=== PATIENT | female | born 1940 | race Caucasian/White ===

== ENCOUNTER → 2022-07-12 | Outpatient (CLI) | payer MEDICARE ==
--- NOTE | 2022-07-12 15:44 | XR ---
EXAMINATION TYPE: XR chest 2V DATE OF EXAM: 07/12/2022 COMPARISON: NONE HISTORY: Malignant neoplasm head of pancreas. Weakness and shortness of breath. TECHNIQUE: Frontal and lateral views of the chest are obtained. FINDINGS: Suspect mild underlying emphysematous change. Left internal jugular Mediport catheter termi nates in SVC. There is no focal air space opacity, pleural effusion, or pneumothorax seen. The cardi ac silhouette size is within normal limits with atherosclerotic change aortic knob. The osseous str uctures are demineralized. IMPRESSION: Mild chronic emphysematous change without acute pulmonary process.
== END | disposition home or self-care (01) ==
LOC: RADXRMAIN 15:26
PROVIDERS: ATTEND Internal Medicine
DX: C25.0 Malignant neoplasm of head of pancreas (principal)
CPT/HCPCS: 71046

== ENCOUNTER → 2022-07-19 | Outpatient (CLI) | payer MEDICARE ==
[2022-07-19 12:28] LABS: African American GFR (CKD) >90 (>60 ml/min/1.73 sqM); Blood Urea Nitrogen 16 mg/dL (7-17); Non-African American GFR(CKD) 84 (>60 ml/min/1.73 sqM)
--- NOTE | 2022-07-19 13:21 | CT ---
EXAMINATION TYPE: CT chest w con DATE OF EXAM: 07/19/2022 COMPARISON: Radiograph 07/12/2022 HISTORY: 81-year-old female productive cough, hx of pancreatic ca TECHNIQUE: Contiguous axial scanning of the chest after the administration of 70cc mL of Isovue 300. Coronal/sagittal reconstructions performed. CT DLP: 452mGycm. Automatic exposure control utilized for a dose reduction. FINDINGS: Oil cyst measuring 1.2 cm lateral right breast. Heart normal size without pericardial effusion. Left anterior chest wall injection port with catheter tip at the lower SVC. Aorta normal caliber with scattered mild to moderate atherosclerotic arch and descending thoracic aor tic calcifications. Moderate focal atherosclerotic narrowing at the proximal right subclavian artery. No thoracic lymphadenopathy by CT size criteria. Mild diffuse bronchial wall thickening. There are a few scattered focal peribronchovascular and perip heral opacities. Some tree-in-bud opacity posterior left upper lobe. Some strandy atelectasis or scar ring in the lower lungs. No large focal area of consolidation or pleural effusion. Small to moderate-sized hiatal hernia. Visualized upper abdomen shows pneumobilia. A metallic stent i s present in the bile duct and there is diffuse dilatation of the main pancreatic duct noted likely s econdary to the patient's reported pancreatic cancer. 3 mm nonobstructive right renal calculus. Moderate atherosclerotic calcifications visualized upper abdominal aorta. Bones: Arthropathy in the lumbar spine. Moderate degenerative disc disease L2-L3. IMPRESSION: 1. A few scattered foci of peribronchovascular opacity especially in the upper and mid lungs. Finding s may be seen with developing COVID pneumonia or interstitial pneumonitis such as [employer]. Clinically cor relate. 2. Fyckf-[id number]-vwihdxdu size hiatal hernia. Pneumobilia and metallic biliary stent. Main pancreatic duct al dilatation. Findings likely on the basis of patient's known pancreatic cancer. Nonobstructive 3 mm right renal stone.
== END | disposition home or self-care (01) ==
LOC: RADCTMAIN 11:40
PROVIDERS: ATTEND Internal Medicine
DX: Z03.89 Encounter for observation for other suspected diseases and conditions ruled out (principal); C25.0 Malignant neoplasm of head of pancreas
CPT/HCPCS: 82565; 84520; 71260; 36415; Q9967

== ENCOUNTER 2022-08-01 14:49 | Emergency (ER) | payer MEDICARE ==
[2022-08-01 15:02] VITALS: BP 147/70; PULSE 105; RESP 20; TEMP 96.8
--- NOTE | 2022-08-01 15:57 | XR ---
EXAMINATION TYPE: XR chest 2V DATE OF EXAM: 08/01/2022 COMPARISON: Chest x-ray 07/12/2022 HISTORY: Dysrhythmia, tachycardia TECHNIQUE: Frontal and lateral views of the chest are obtained. FINDINGS: There is a Port-A-Cath in left pectoral region coursing via jugular approach, distal tip o f the catheter is at the cavoatrial junction. No evident pneumothorax or pleural effusion. Bilateral pulmonary nodules are again seen. Cardiac mediastinal silhouette is stable. Aorta is dense. Bones are unchanged. Prominent lung volumes are consistent with underlying COPD. IMPRESSION: Metastatic disease.
[2022-08-01 18:00] LABS: Basophils # (A) 0.1 k/uL (0-0.2); Basophils % (A) 1 %; Eosinophils % (A) 0 %; HCT 33.6 % (34.0-46.0); Lymphocytes # (A) 2.6 k/uL (1.0-4.8); Lymphocytes % (A) 43 %; MCH 29.9 pg (25.0-35.0); MCHC 32.8 g/dL (31.0-37.0); MCV 91.3 fL (80.0-100.0); Mean Platelet Volume 8.3; Monocytes # (A) 0.1 k/uL (0-1.0); Monocytes % (A) 1 %; Neutrophils # (A) 3.3 k/uL (1.3-7.7); Neutrophils % (A) 53 %; Platelet Count 287 k/uL (150-450); RBC 3.68 m/uL (3.80-5.40); RDW 13.3 % (11.5-15.5); WBC 6.1 k/uL (3.8-10.6)
[2022-08-01 18:10] LABS: ALT 75 U/L (4-34); AST 63 U/L (14-36); African American GFR (CKD) >90 (>60 ml/min/1.73 sqM); Albumin 4.1 g/dL (3.5-5.0); Alkaline Phosphatase 101 U/L (38-126); Anion Gap 10 mmol/L; Blood Urea Nitrogen 18 mg/dL (7-17); Calcium 9.4 mg/dL (8.4-10.2); Carbon Dioxide 23 mmol/L (22-30); Chloride 103 mmol/L (98-107); Glucose 98 mg/dL (74-99); Magnesium 1.8 mg/dL (1.6-2.3); Non-African American GFR(CKD) >90 (>60 ml/min/1.73 sqM); Potassium 4.4 mmol/L (3.5-5.1); Sodium 136 mmol/L (137-145); Total Bilirubin 0.6 mg/dL (0.2-1.3); Total Protein 6.8 g/dL (6.3-8.2)
[2022-08-01 18:15] LABS: Partial Thromboplastin Time 21.5 sec (22.0-30.0); Prothrombin Time 10.6 sec (9.0-12.0)
[2022-08-01] MEDS ORDERED: SODIUM CHLORIDE 0.9% 1,000 ML IV ONE (19:29)
--- NOTE | 2022-08-01 19:45 | ED ---
General Adult HPI - General Chief complaint: Arrhythmia/Palpitations Stated complaint: Heart Racing Time Seen by Provider: 08/01/22 19:10 Source: patient Mode of arrival: ambulatory Limitations: no limitations - History of Present Illness Initial comments: Patient is a 81-year-old female with history of pancreatic cancer currently receiving chemo presenting with chief complaint of elevated heart rate. Patient was seen on her oncologist office today. Patient's fitbit was indicating an elevated heart rate throughout the afternoon. The practitioner at the office recommended she reports the ER for further evaluation, and was concerned for dehydration. Patient denies any chest pain, shortness of breath, fever, chills, nausea, vomiting, palpitations, weakness, numbness, tingling, abdominal pain, hematochezia, melena, dysuria, hematuria, lower extremity swelling, recent surgery or travel. - Related Data Allergies Allergy/AdvReac Type Severity Reaction Status Date / Time No Known Allergies Allergy Verified 08/01/22 15:02 Review of Systems ROS Statement: Those systems with pertinent positive or pertinent negative responses have been documented in the HPI. ROS Other: All systems not noted in ROS Statement are negative. Past Medical History Past Medical History: Asthma, Hypertension Additional Past Medical History / Comment(s): cx-pancreatic. overactive bladder History of Any Multi-Drug Resistant Organisms: None Reported Past Surgical History: No Surgical Hx Reported, Appendectomy, Cholecystectomy, Hysterectomy, Tonsillectomy Additional Past Surgical History / Comment(s): stent in liver Past Psychological History: No Psychological Hx Reported Smoking Status: Never smoker Past Alcohol Use History: None Reported Past Drug Use History: None Reported General Exam Limitations: no limitations General appearance: alert, in no apparent distress Head exam: Present: atraumatic, normocephalic, normal inspection Eye exam: Present: normal appearance, EOMI. Absent: scleral icterus, periorbital swelling Neck exam: Present: normal inspection Respiratory exam: Present: normal lung sounds bilaterally. Absent: respiratory distress, wheezes, rales, rhonchi, stridor Cardiovascular Exam: Present: regular rate, normal rhythm, normal heart sounds. Absent: systolic murmur, diastolic murmur, rubs, gallop, clicks Neurological exam: Present: alert, oriented X3, CN II-XII intact Psychiatric exam: Present: normal affect, normal mood Skin exam: Present: warm, dry, intact, normal color. Absent: rash Course Vital Signs 08/01/22 14:58 Temperature 96.8 F L Pulse Rate 105 H Respiratory 20 Rate Blood Pressure 147/70 O2 Sat by Pulse 99 Oximetry EKG Findings - EKG Comments: EKG Findings:: Sinus rhythm ventricular rate 96. IA interval 176. QRS duration 82. QT/QTC 324/378. No ischemic changes. This EKG was also shown to and interpreted by my attending Dr. Vasques Medical Decision Making - Medical Decision Making Patient is a 81-year-old female presenting with chief complaint of elevated heart rate. Patient's fitness watch was detecting elevated heart rate throughout this afternoon, she was being seen at her oncologist office today, who advised her to report to the ER with concerns of dehydration. On examination heart and lungs are clear to auscultation, patient's heart rate is sustained in the 90s when I'm speaking with her. EKG shows no ischemic changes. Lab work shows no leukocytosis, hemoglobin 11. Sodium 136. Mild tr ansaminitis. Troponin is less than 0.012. Magnesium 1.8. Chest x-ray shows no new changes, there are some bilateral pulmonary nodules that are seen again. On reassessment patient reports that she wishes to go home at this time, stating that she feels well. Educated patient on potential need for Holter monitor. Follow-up with PCP. Report back to ER with any new or worsening symptoms. Discussed return parameters and answered all questions. Patient conveyed verbal understanding and agreed to the plan. I discussed this case in detail with my attending Dr. Vasques. - Lab Data Result diagrams: 08/01/22 17:43 08/01/22 17:43 Lab Results 08/01/22 08/01/22 08/01/22 Range/Units 17:43 17:43 17:43 WBC 6.1 (3.8-10.6) k/uL RBC 3.68 L (3.80-5.40) m/uL Hgb 11.0 L (11.4-16.0) gm/dL Hct 33.6 L (34.0-46.0) % MCV 91.3 (80.0-100.0) fL MCH 29.9 (25.0-35.0) pg MCHC 32.8 (31.0-37.0) g/dL RDW 13.3 (11.5-15.5) % Plt Count 287 (150-450) k/uL MPV 8.3 Neutrophils % 53 % Lymphocytes % 43 % Monocytes % 1 % Eosinophils % 0 % Basophils % 1 % Neutrophils # 3.3 (1.3-7.7) k/uL Lymphocytes # 2.6 (1.0-4.8) k/uL Monocytes # 0.1 (0-1.0) k/uL Eosinophils # 0.0 (0-0.7) k/uL Basophils # 0.1 (0-0.2) k/uL PT 10.6 (9.0-12.0) sec INR 1.0 (<1.2) APTT 21.5 L (22.0-30.0) sec Sodium 136 L (137-145) mmol/L Potassium 4.4 (3.5-5.1) mmol/L Chloride 103 (98-107) mmol/L Carbon Dioxide 23 (22-30) mmol/L Anion Gap 10 mmol/L BUN 18 H (7-17) mg/dL Creatinine 0.51 L (0.52-1.04) mg/dL Est GFR (CKD-EPI)AfAm >90 (>60 ml/min/1.73 sqM) Est GFR (CKD-EPI)NonAf >90 (>60 ml/min/1.73 sqM) Glucose 98 (74-99) mg/dL Calcium 9.4 (8.4-10.2) mg/dL Magnesium 1.8 (1.6-2.3) mg/dL Total Bilirubin 0.6 (0.2-1.3) mg/dL AST 63 H (14-36) U/L ALT 75 H (4-34) U/L Alkaline Phosphatase 101 (38-126) U/L Troponin I (0.000-0.034) ng/mL Total Protein 6.8 (6.3-8.2) g/dL Albumin 4.1 (3.5-5.0) g/dL 08/01/22 Range/Units 17:43 WBC (3.8-10.6) k/uL RBC (3.80-5.40) m/uL Hgb (11.4-16.0) gm/dL Hct (34.0-46.0) % MCV (80.0-100.0) fL MCH (25.0-35.0) pg MCHC (31.0-37.0) g/dL RDW (11.5-15.5) % Plt Count (150-450) k/uL MPV Neutrophils % % Lymphocytes % % Monocytes % % Eosinophils % % Basophils % % Neutrophils # (1.3-7.7) k/uL Lymphocytes # (1.0-4.8) k/uL Monocytes # (0-1.0) k/uL Eosinophils # (0-0.7) k/uL Basophils # (0-0.2) k/uL PT (9.0-12.0) sec INR (<1.2) APTT (22.0-30.0) sec Sodium (137-145) mmol/L Potassium (3.5-5.1) mmol/L Chloride (98-107) mmol/L Carbon Dioxide (22-30) mmol/L Anion Gap mmol/L BUN (7-17) mg/dL Creatinine (0.52-1.04) mg/dL Est GFR (CKD-EPI)AfAm (>60 ml/min/1.73 sqM) Est GFR (CKD-EPI)NonAf (>60 ml/min/1.73 sqM) Glucose (74-99) mg/dL Calcium (8.4-10.2) mg/dL Magnesium (1.6-2.3) mg/dL Total Bilirubin (0.2-1.3) mg/dL AST (14-36) U/L ALT (4-34) U/L Alkaline Phosphatase (38-126) U/L Troponin I <0.012 (0.000-0.034) ng/mL Total Protein (6.3-8.2) g/dL Albumin (3.5-5.0) g/dL Disposition Clinical Impression: Palpitations Disposition: HOME SELF-CARE Condition: Good Instructions (If sedation given, give patient instructions): Heart Palpitations (ED), Tachycardia (ED) Additional Instructions: Follow up with PCP and informal waiter/waitress. May need Holter monitor study. Report back to ER with any new or worsening symptoms. Is patient prescribed a controlled substance at d/c from ED?: No Referrals: Man Grant MD [Primary Care Provider] - 1-2 days Time of Disposition: 19:44
== END 2022-08-01 19:51 | disposition home or self-care (01) ==
LOC: EC 14:49
DX: R00.2 Palpitations (principal); J45.909 Unspecified asthma, uncomplicated; I10 Essential (primary) hypertension
CPT/HCPCS: 36415; 71046; 80053; 83735; 84484; 85025; 85610; 85730; 93005; 99285

== ENCOUNTER → 2022-08-01 | Outpatient (CLI) | payer MEDICARE | END | disposition home or self-care (01) | LOC: LABWHC1 14:00 | PROVIDERS: ATTEND Nurse Practitioner Adult Health | DX: C25.0 Malignant neoplasm of head of pancreas (principal) | CPT/HCPCS: 93005 ==